=== PATIENT | female | born 1940 | race Caucasian/White ===

== ENCOUNTER → 2016-12-24 | Outpatient (CLI) | payer MEDICARE, BC ==
[~2016-12-24] MED LIST: ASACOL HD800 MG; ASPIRIN81 MG; BYSTOLIC2.5 MG; CALCIUM1 TAB.CHEW; CANASA1000 MG/S1; NORCO1 TAB 10/3 PO; NORVASC; ZESTRIL10 M1
--- NOTE | ~2016-12-24 | ST ---
Unit #: [id number] #: [id number] Patient: GLENN DOMINGO [id number] [facility]. [address] [address] [id number] O MR#: [id number] NAME: GLENN DOMINGO. : 1940 SEX: F STUDY DATE/TIME: 12/24/2016 UNIT: [facility] ROOM: STUDY DESCRIPTION: Attending Physician: Momo Lopez Jr., M.D. Primary Care Physician: Momo Lopez Jr., M.D. CARDIOLOGY REPORT EXAM Exercise Cardiolite stress test, exercise portion. FINDINGS Resting heart rate is 76. Resting blood pressure is 142/84 mmHg. PROCEDURE Patient was made to exercise on a standard Rocael protocol. Total exercise time is 3 minutes and 30 seconds. Test stopped because of shortness of breath. No complaints of chest pain. Cardiolite injection was given at 1 minute and 56 seconds. Maximal heart rate obtained is 141, which is 99% of maximal predicted heart rate. Maximal blood pressure obtained is 162/88 mmHg. Patient had 0.[address]-T wave changes noted. The patient had frequent single multifocal premature ventricular complexes noted at peak exercise and during recovery. CONCLUSION 1. Poor exercise tolerance. 2. Patient had nonspecific ST-T wave changes and a single premature ventricular complex was noted at peak exercise and during recovery. 3. Normal blood pressure response. 4. Please correlate with nuclear findings. Dictated by... Tang Page TD: 12/24/2016 13:59 JOB #: [id number] Unit #: [id number] #: [id number] Patient: GLENN DOMINGO CARDIOLOGY REPORT Page 1 of 1 X Francheska Gandhi MD <ELECTRONICALLY SIGNED> 02/26/17 1429 CARDIOLOGY REPORT
--- NOTE | ~2016-12-24 | TH ---
Unit #: [id number] #: [id number] Patient: GLENN DOMINGO [id number] [facility]. [address] [address] [id number] O MR#: [id number] NAME: GLENN DOMINGO. : 1940 SEX: F STUDY DATE/TIME: 12/24/2016 UNIT: [facility] ROOM: STUDY DESCRIPTION: Exercise stress test - Nuclear Attending Physician: Momo Lopez Jr., M.D. Primary Care Physician: Momo Lopez Jr., M.D. CARDIOLOGY REPORT PROCEDURE PERFORMED Exercise Cardiolite stress test - Nuclear portion. PROCEDURE Using technetium 99m-labeled Cardiolite, rest and stress SPECT images were obtained. Multiple SPECT images were obtained in various views, including horizontal and vertical long axis and short axis views of the left ventricle. Images were obtained by gated SPECT method. The patient was administered 11.58 mCi of Cardiolite at rest. The patient was administered 33.9 mCi of Cardiolite at peak exercise. Total exercise time is 3 minutes and 30 seconds. On the stress images, there is normal perfusion noted. The rest images show normal perfusion. Comparing the rest and stress images, there is no stress-induced ischemia noted. The left ventricular ejection fraction is calculated to be 66%. There is no focal wall motion abnormality seen. CONCLUSION 1. No stress-induced ischemia noted. 2. The left ventricular ejection fraction is calculated to be 66%. 3. There is no focal wall motion abnormality seen. 4. The left ventricular size is small. 5. Normal nuclear portion of the stress test. 6. Clinical correlation is requested. Dictated by... Tang Page/breanne TD: 12/24/2016 14:28 JOB #: [id number] Unit #: [id number] #: [id number] Patient: GLENN DOMINGO CARDIOLOGY REPORT Page 1 of 1 X Francheska Gandhi MD <ELECTRONICALLY SIGNED> 02/26/17 1426 CARDIOLOGY REPORT
== END | disposition home or self-care (01) ==
LOC: CNUC 06:01
DX: R07.9 Chest pain, unspecified (principal); R94.31 Abnormal electrocardiogram [ECG] [EKG]; R06.02 Shortness of breath
CPT/HCPCS: 78452; 93017; A9500

== ENCOUNTER → 2017-01-05 | Outpatient (CLI) | payer MEDICARE, BC | END | disposition home or self-care (01) | LOC: CECH 09:42 | DX: I07.1 Rheumatic tricuspid insufficiency (principal); R94.31 Abnormal electrocardiogram [ECG] [EKG] | CPT/HCPCS: 93306 ==